=== PATIENT | male | born 1980 | race Caucasian/White ===

== ENCOUNTER 2020-05-17 19:25 | Emergency (ER) | payer BC, SELFPAY ==
--- NOTE | 2020-05-17 19:30 | ED.MALEGU ---
HPI - Male Genitourinary General Chief complaint: Urogenital-Male Stated complaint: uti or std Time Seen by Provider: 05/17/20 19:35 Source: patient and RN notes reviewed Mode of arrival: ambulatory Limitations: no limitations History of Present Illness HPI Narrative: 39 year old male who presents to [facility] care with complaints of penile drainage which is yellow and pain at the tip of his penis for approximately a week duration, Patient states that he thinks he may of been exposed to a STD, has had a new sex partner.Patient denies any fever, chills or sweats, denies any testicular pain, suprapubic pain or any frequency or blood with urination. MD Complaint: penile discharge, possible STD exposure and other (irritation tip of penis) Onset (ago): week(s) (1) Duration: constant Location: penis Radiation: penis Severity scale (1-10): 2 Quality: other (irritation) Relieving factors: none Exacerbating factors: urination Context: new sexual partner Associated symptoms: Reports discharge and other (pain at tip of penis) Related Data Sexually active: Yes Allergies Allergy/AdvReac Type Severity Reaction Status Date / Time house dust Allergy Unknown Sneezing Verified 05/17/20 19:34 Review of Systems Review of Systems: Narrative: CONSTITUTIONAL: Denies fever, chills, or sweats. EYES: Denies visual changes, redness, or discharge. ENT: Denies rhinorrhea, congestion, sore throat, or otalgia. CARDIOVASCULAR: Denies chest pain, palpitations, or edema. RESPIRATORY: Denies cough or dyspnea. GASTROINTESTINAL: Denies abdominal pain, nausea, vomiting, or diarrhea. GENITOURINARY: Denies dysuria or hematuria.positive for irritation at tip of penis with yellow discharge SKIN: Denies rash or itching. MUSCULOSKELETAL: Denies back pain, joint pain, or myalgia. NEUROLOGIC: Denies headache, numbness, or weakness. PSYCHIATRIC: Denies anxiety or depression. All systems reviewed & are unremarkable except as noted in HPI and below PMFSH Past Medical History Medical History (Updated 05/18/20 @ 00:00 by Adwoa Daemon) Asthma Surgical History Surgical History (Updated 05/17/20 @ 19:59 by Delmy De La Cruz NP) [place] teeth extracted Social History Social History Smoking status: Never smoker Alcohol intake: current Gender identity (if verbalized by the patient): Male Comments At time of signature, agree with nursing past medical, surgical, social history. There is no relevant family history pertinent to the presenting complaint Exam Narrative: Exam Narrative: GENERAL: Well-appearing, well-nourished, and in no acute distress. HEAD: Normocephalic, atraumatic. EYES: PERRLA and EOMI. ENT: Nares clear, no rhinorrhea or epistaxis. Mucous membranes moist. NECK: Supple. CHEST: Clear to auscultation. No respiratory distress.SAO2 100% on room air HEART: Regular rate and rhythm. No murmur heard. Normal peripheral pulses. ABDOMEN: Soft, nontender, nondistended, normal active bowel sounds.denies any suprapubic or testicular pain or any CVA tenderness. Stated irritation to end of penis with yellow discharge with voiced concern of possible STD. EXTREMITIES: Normal range of motion. No edema. SKIN: Warm, dry, no rash. NEURO: No focal deficits. Alert and oriented x3. Course Vital Signs Vital signs: Vital Signs Temperature 37.2 C 05/17/20 19:32 Pulse Rate 60 05/17/20 19:32 Respiratory Rate 18 05/17/20 19:32 Blood Pressure 142/80 H 05/17/20 19:32 Pulse Oximetry 100 05/17/20 19:32 Temperature 37.2 C 05/17/20 19:32 Pulse Rate 60 05/17/20 19:32 Respiratory Rate 18 05/17/20 19:32 Blood Pressure 142/80 H 05/17/20 19:32 Pulse Oximetry 100 05/17/20 19:32 MDM - Male Genitourinary MDM Narrative Medical decision making narrative: Patient received Rocephin 250mg IM and Azithromycin 100mg orally while in clinic and prescription for Flagyl 500 mg BID for 7 days sent to [facility]
[2020-05-17 19:32] VITALS: BP 142/80; PULSE 60; RESP 18; TEMP 37.2; O2SAT 100
[2020-05-17] MEDS: AZITHROMYCIN 250 MG TABLET 1000 MG PO (19:48)
[2020-05-17] MEDS: cefTRIAXone 250 MG VIAL IM (19:49)
[2020-05-17] MEDS: LIDOCAINE HCL 1% LOCAL INJ 20 ML VIAL IM (19:49)
== END 2020-05-17 20:09 | disposition home or self-care (01) ==
PROVIDERS: Emergency Provider Registered Nurse; PCP Family Medicine
DX: Z20.2 Contact with and (suspected) exposure to infections with a predominantly sexual mode of transmission (principal); N34.2 Other urethritis; J45.909 Unspecified asthma, uncomplicated
CPT/HCPCS: 81003; 87491; 87591; 87661; 96372; 99213; A9270; G0463; J0696

== ENCOUNTER 2024-01-29 13:40 | Emergency (ER) | payer OTHER, SELFPAY ==
--- NOTE | ~2024-01-29 | XR_ITS ---
EXAMINATION: XR ribs LT 2V DATE: 01/29/2024 14:03 INDICATION: Left rib pain. TECHNIQUE: 2 views of the left ribs on 3 radiographs were obtained. COMPARISON: None. FINDINGS: There is no left-sided pneumonia, pleural effusion, or pneumothorax. The heart size is norm al. IMPRESSION: 1. No fracture. Reviewed, dictated and finalized at location A. IMPRESSION: 1. No fracture.
--- NOTE | 2024-01-29 13:48 | ED.GENADULT ---
HPI - General Adult General Chief complaint: Wound/Laceration Stated complaint: pain in the lt chest region Time Seen by Provider: 01/29/24 13:50 Source: patient Mode of arrival: ambulatory Limitations: no limitations History of Present Illness HPI narrative: Ez is a 43-year-old male patient presenting to the clinic today with complaints of left-sided rib pain times 10 days. He reports he was leaning over when building a bar and felt a pop in the left chest wall. States that is just below his cruz on the left side. Having pain with sneezing, coughing, any taking deep breaths over this area. No bruising or swelling noted. Denies any worsening of shortness of breath. History of asthma. Related Data Home Medications Medication Instructions Recorded Confirmed No Home Medications 11/18/21 01/29/24 Allergies Allergy/AdvReac Type Severity Reaction Status Date / Time house dust Allergy Unknown Sneezing Verified 01/29/24 13:51 Review of Systems Review of Systems: Pertinent positives per HPI. Patient denies any fever, chills, rash, headache, visual changes, dizziness, cough, runny nose, sore throat, shortness of breath, chest pain, palpitations, nausea, vomiting, diarrhea, constipation, abdominal pain, or any urinary issues. PMFSH Past Medical History Medical History Asthma Surgical History Surgical History [place] teeth extracted Social History Social History Smoking status: Former smoker Alcohol intake: current Gender identity (if verbalized by the patient): Male Comments At the time of my signature, I reviewed and agree with the nursing past medical, surgical, social, and family history. There is no relevant family history pertinent to the patient complaint. Exam Narrative: General: Well-developed, well nourished, in no apparent distress Head: Normocephalic, atraumatic. Chest wall: Even rise and fall of the chest wall with respirations, no bruising or swelling noted, tenderness to palpation over the left cruz/anterior rib prominence Cardio: Regular rate and rhythm, s1 and s2 normal, no murmur appreciated. Resp: Clear to auscultation bilaterally, no rhonchi, rales, wheezing or rubs. Extremities: No deformity, no edema, no cyanosis, capillary refill less than 2 seconds, peripheral pulses palpable and strong. Integumentary: [place], warm, and dry, intact without lesion, no rashes. Course Course Emergency Course: Portions of this record may have been created with voice recognition software. Level of Care: Express Care Visit Vital Signs Vital signs: Vital signs reviewed Medical Decision Making MDM Narrative Medical decision making narrative: At the time of visit patient is resting comfortably on the exam table. Patient appears to be nontoxic. Diagnostics: Left rib x-ray was performed and was negative for any sign of fracture, malalignment, pneumonia, or pneumothorax. Plan: I suspect patient has rib pain/chest wall pain. Supportive measures were discussed with the patient and they voiced understanding discharge instructions and agrees to treatment plan. Return precautions reviewed Differential Diagnosis Differential Diagnosis: Rib fracture, rib contusion, costochondritis, chest wall pain, pneumothorax Imaging Data Radiologist's impression: ITS Impressions Ribs X-Ray 01/29/24 14:07 IMPRESSION: 1. No fracture. Discharge Plan Discharge Clinical Impression: Rib pain on left side Patient Disposition: Home, Self-Care Condition: Stable Instructions: Antibiotic Form, Chest Wall Pain (ED) Additional Instructions: X-rays negative for any sign of acute fracture or malalignment of the left ribs. No sign of pneumonia or pneumothorax. May take Tylenol/ibuprofen as needed for mike
[2024-01-29 13:51] VITALS: BP 136/77; PULSE 61; RESP 18; TEMP 36.9; O2SAT 98
== END 2024-01-29 14:18 | disposition home or self-care (01) ==
PROVIDERS: Emergency Provider Nurse Practitioner Family; Referring Provider Family Medicine
DX: R07.81 Pleurodynia (principal); J45.909 Unspecified asthma, uncomplicated; Z87.891 Personal history of nicotine dependence
CPT/HCPCS: 71100; 99213; G0463

== ENCOUNTER 2024-03-14 10:49 | Emergency (ER) | payer OTHER, SELFPAY ==
[2024-03-14 10:57] VITALS: BP 133/66; PULSE 73; RESP 18; TEMP 36.9; O2SAT 99
--- NOTE | 2024-03-14 11:08 | ED.GENADULT ---
HPI - General Adult General Chief complaint: Skin/Abscess/Foreign Body Stated complaint: Right Knee Injury Time Seen by Provider: 03/14/24 11:18 Source: patient, RN notes reviewed and old records reviewed Mode of arrival: ambulatory Limitations: no limitations History of Present Illness HPI narrative: patient presents to [facility] with complaints of right knee pain and swelling. He reports that 10-14 days ago he cut his knee on his boat. He reports that he did not think much of it, until 1:00 a.m. this morning he wakened and the knee was swollen, red, hot to the touch. He took ibuprofen and is feeling better. The knee does continue with swelling and redness and warmth. He does retain full range of motion. He voices no other concerns or complaints today. He denies any other injury or trauma Related Data Home Medications Medication Instructions Recorded Confirmed No Home Medications 11/18/21 03/14/24 Allergies Allergy/AdvReac Type Severity Reaction Status Date / Time house dust Allergy Unknown Sneezing Verified 03/14/24 11:01 Review of Systems Review of Systems: All systems reviewed & are unremarkable except as noted in HPI and below Constitutional: Constitutional: Reports no additional constitutional complaints ENT: Reports system reviewed and no additional complaints, except as documented Cardiovascular: Cardiovascular: Reports no additional cardiovascular complaints Respiratory: Respiratory: Reports no additional respiratory complaints Gastrointestinal: Gastrointestinal: Reports no additional gastrointestinal complaints Musculoskeletal: Musculoskeletal: Reports arthralgias ( right knee swollen, warm, red) [facility] Past Medical History Medical History Asthma Surgical History Surgical History [place] teeth extracted Social History Social History Smoking status: Former smoker Alcohol intake: current Gender identity (if verbalized by the patient): Male Comments At the time of my signature, I reviewed and agree with the nursing past medical, surgical, social, and family history. There is no relevant family history pertinent to the patient complaint. Exam Const: General: cooperative, no acute distress, alert and awake Orientation/consciousness: oriented to person, oriented to place and oriented to time HENMT: Head: normal to inspection Resp: Effort & Inspection: normal respiratory effort and able to speak in complete sentences Auscultation: clear to auscultation bilaterally, no crackles, no rales, no rhonchi and no wheezes Cardio: Palpation: normal PMI Rate: regular rate Rhythm: regular rhythm Heart sounds: S1 normal heart sound present and S2 normal heart sound present Neuro: General: oriented to person, oriented to place and oriented to time Cranial nerves: Yes CN's II-XII intact bilaterally Extrem: Upper/lower leg/hip images: 1. shallow abrasion 2. knee is erythematous, warm to the touch, fluctuant Psych: Appearance: grossly normal Thought process: Normal thought process present Insight: Good insight present (Psych) Judgement: Good judgement present (Psych) Course Course Level of Care: Express Care Visit Vital Signs Vital signs: Vital Signs Temperature 98.4 F 03/14/24 10:57 Pulse Rate 73 03/14/24 10:57 Respiratory Rate 18 03/14/24 10:57 Blood Pressure 133/66 03/14/24 10:57 Pulse Oximetry 99 03/14/24 10:57 Oxygen Delivery Room Air 03/14/24 10:57 Temperature 98.4 F 03/14/24 10:57 Pulse Rate 73 03/14/24 10:57 Respiratory Rate 18 03/14/24 10:57 Blood Pressure 133/66 03/14/24 10:57 Pulse Oximetry 99 03/14/24 10:57 Oxygen Delivery Room Air 03/14/24 10:57 Reviewed Transfer Transfered to: [facility] Transfer rationale: concern for septic joint Accepting p
== END 2024-03-14 11:30 | disposition short-term general hospital (02) ==
PROVIDERS: Emergency Provider Nurse Practitioner Family
DX: M00.9 Pyogenic arthritis, unspecified (principal); Z87.891 Personal history of nicotine dependence; J45.909 Unspecified asthma, uncomplicated
CPT/HCPCS: 99212; G0463

== ENCOUNTER 2024-03-14 11:43 | Emergency (ER) | payer OTHER, SELFPAY ==
--- NOTE | ~2024-03-14 | XR_ITS ---
XR knee RT min 4V 03/14/2024 14:25 Indication: Right knee pain. Anterior laceration. Procedure: 5 views right knee Comparison: No prior studies for comparison. Findings: Large amount of prepatellar and infrapatellar soft tissue swelling. No joint effusion. No a cute fracture or traumatic malalignment. No foreign bodies. Impression: 1: Large amount of prepatellar and infrapatellar soft tissue swelling. Reviewed, dictated and finalized at location B. Impression: 1: Large amount of prepatellar and infrapatellar soft tissue swelling.
[2024-03-14 11:57] VITALS: BP 133/75; PULSE 70; RESP 18; TEMP 36.9; O2SAT 100
[2024-03-14 12:46] VITALS: BP 143/65; PULSE 70; RESP 18; TEMP 36.9; O2SAT 100
--- NOTE | 2024-03-14 14:02 | ED.LOWEXIN ---
HPI - Extremity Injury (Lower) General Chief Complaint: Extremity Injury, Lower Stated Complaint: right knee pain Time Seen by Provider: 03/14/24 14:00 Source: patient Mode of arrival: ambulatory Limitations: no limitations History of Present Illness HPI Narrative: Patient presents with right knee pain. He scratched his knee approximately 1 week ago. It started swelling and is warm to the touch. He describes pain and pressure. He picked one of the scabs thinking it might relieve some of the pressure and got some blood out. Took 4 ibuprofen. No fevers. He also has a rash on his abdomen which had been itchy but that improved. Denies any penile pain or discharge. No history of knee injury/orthopedic intervention. Related Data Allergies Allergy/AdvReac Type Severity Reaction Status Date / Time house dust Allergy Unknown Sneezing Verified 03/15/24 11:06 [facility] Past Medical History Medical History (Updated 03/15/24 @ 12:20 by Nelson Clay MD) Asthma Septic prepatellar bursitis of right knee Surgical History Surgical History [place] teeth extracted Family History Family History Unknown Asthma Social History Social History Social History: caffeine use Smoking status: Former smoker Alcohol intake: current Drinks per week: 10 Substance use: current Substance use type: marijuana Occupation/Education: occupation Additional occupation/education comments: self- construction Gender identity (if verbalized by the patient): Male Exam Narrative: GENERAL: Well-appearing, well-nourished, and in no acute distress. HEAD: Normocephalic, atraumatic. EYES: Non injected, non icteric ENT: Nares clear, no rhinorrhea or epistaxis. NECK: Supple. CHEST: Speaking in full sentences. No respiratory distress. HEART: Regular rate and rhythm. . ABDOMEN: Soft, nondistended. EXTREMITIES: Knee effusion. Edema. Knee Warm to the touch. Pain with active range of motion though improved on passive ROM. SKIN: Warm, dry. 2 scabbed areas. Faint Maculopapular rash overlying abdomen which is also on top of mildly sunburnt/sun damaged skin thoughout. NEURO: No focal deficits. Alert and oriented x3. PSYCH: Normal mood and affect. Course Vital Signs Vital signs: Vital Signs Temperature 98.5 F 03/14/24 11:57 Pulse Rate 70 03/14/24 11:57 Respiratory Rate 18 03/14/24 11:57 Blood Pressure 133/75 03/14/24 11:57 Pulse Oximetry 100 03/14/24 11:57 Oxygen Delivery Room Air 03/14/24 11:57 Temperature 98.8 F 03/14/24 19:52 Pulse Rate 57 L 03/14/24 19:52 Respiratory Rate 17 03/14/24 19:52 Blood Pressure 122/78 03/14/24 19:52 Pulse Oximetry 100 03/14/24 19:52 Oxygen Delivery Room Air 03/14/24 11:57 Procedures Joint Aspiration/Injection Joint Asp./Inject. 1: Joint Aspiration Date: 03/14/24 Time Out Performed: Yes Side of body: right Joint Aspirated: knee Ultrasound Guidance: Yes Skin Prep: other (Alcohol) Local Anesthetic: lidocaine 1% Amount of anesthesia used (mL): 6 Needle Size Used: 18G Fluid Obtained: bloody Total fluid obtained (mL): 12 Patient Tolerated Procedure: well and no complications Additional Comments: Bedside ultrasound showed moderate knee effusion. Procedure Note - Arthrocentesis Consent was provided by the patient to perform diagnostic and therapeutic right knee arthrocentesis under ultrasound guidance. The procedure was performed by me. The patient was monitored during the entire procedure. The knee was prepped and draped. Area prepped with alcohol and skin locally anesthetized as above. US was used to guide the aspiration needle along lateral aspect of right knee and bloody/straw colored fluid was removed. Fluid was sent to lab f
[2024-03-14 14:52] LABS: Basophils Percent Auto 0.4 % (0.2-1.2); Eosinophils Percent Auto 0.4 % (0-4.4); Hematocrit 43.2 % (42.0-52.0); Hemoglobin 14.9 g/dL (14.0-18.0); Immature Granulocyte Absolute 0.02 K/mm3 (0.00-0.031); Immature Granulocyte Percent A 0.2 % (0-0.5); Lymphocytes Absolute Auto 1.05 K/mm3 (0.9-3.2); Lymphocytes Percent Auto 10.5 % (18.3-44.2); Mean Corpuscular HGB Conc 34.5 g/dl (32-36); Mean Corpuscular Hemoglobin 33.1 pg (26-34); Mean Platelet Volume 9.6 fl (7.4-10.4); Neutrophils Absolute Auto 7.9 K/mm3 (1.3-6.7); Neutrophils Percent Auto 78.5 % (45.5-73.1); Platelet Count Result 205 k/mm3 (150-375); Red Cell Distribution Width 13.3 % (11.5-14.5)
[2024-03-14 15:01] LABS: Anion Gap 10 mmol/L (4-12); Blood Urea Nitrogen 13 mg/dL (9-20); Calcium 9.1 mg/dL (8.4-10.2); Carbon Dioxide 29 mmol/L (22-30); Chloride 96 mmol/L (98-107); Estimated CRCL calculation 111 ml/min; Estimated Glomerular Filt Rate > 60; Glucose 99 mg/dL (65-110); Lactic Acid Reflex 0.9 mmol/L (0.7-2.0); Sodium 135 mmol/L (137-145)
[2024-03-14 15:02] LABS: INR 0.9; Prothrombin Time 12.9 Seconds (11.1-14.7)
[2024-03-14 15:03] LABS: Partial Thromboplastin Time 27.3 Seconds (22.3-36.8)
[2024-03-14 15:05] LABS: D Dimer 0.31 ug/mL (<0.48)
[2024-03-14 15:53] LABS: CRP 2.3 mg/dL (<1.0)
[2024-03-14 16:13] LABS: Appearance Synovial Fluid Bloody (Clear); Color Synovial Fluid Red (Colorless); Neutrophils Synovial Fluid 82 % (0-25); Nucleated Cell Synovial Fluid 21369 /uL (0-200); RBC Synovial Fluid 111000 /uL (0-0); Source Synovial Fluid Synovial fluid
[2024-03-14 16:14] LABS: Lymphocytes Synovial Fluid 8 %; Monocytes Synovial Fluid 10 %
[2024-03-14 16:18] LABS: Crystals Synovial Fluid None Seen (None Seen)
[2024-03-14 16:24] LABS: Erythrocyte Sedimentation Rate 1 mm/hr (0-20)
[2024-03-14 16:30] VITALS: PULSE 72; RESP 18; TEMP 36.7; O2SAT 100
[2024-03-14] MEDS: cefTRIAXone 2 GM/NS 100 ML 2 GM/100 ML BAG IVPB (17:03)
[2024-03-14] MEDS: VANCOMYCIN 1,750 MG/NS 500 ML 1,750 MG/500 ML BAG 250 MG IVPB (17:32)
[2024-03-14 17:47] VITALS: BP 118/77; PULSE 58; RESP 18; TEMP 36.8; O2SAT 100
[2024-03-14 19:52] VITALS: BP 122/78; PULSE 57; RESP 17; TEMP 37.1; O2SAT 100
[2024-03-20 19:29] LABS: Total Protein Synovial Fluid 3.7 g/dL (1.0-3.0)
[2024-04-01 14:35] LABS: Glucose Synovial Fluid 80 mg/dL
== END 2024-03-14 19:58 | disposition home or self-care (01) ==
PROVIDERS: Emergency Provider Student in an Organized Health Care Education/Training Program
DX: M25.561 Pain in right knee (principal); M25.461 Effusion, right knee; J45.909 Unspecified asthma, uncomplicated; Z87.891 Personal history of nicotine dependence
CPT/HCPCS: 20610; 36415; 73564; 80048; 82945; 83605; 84157; 85025; 85380; 85610; 85652; 85730; 86140; 87040; 87070; 87075; 87077; 87181; 87205; 89051; 89060; 96365; 96366; 96367; 99284; J0696; J3370

== ENCOUNTER 2024-10-16 14:13 | Emergency (ER) | payer OTHER, SELFPAY ==
--- OUTSIDE RECORDS SUMMARY | 2024-10-16 14:15 | XMS_ITS | Clinical Summary ---
Author Organization [facility] Address [address] [place] [address] Care Team Providers Care Damage Prevention Coordinator Name Role Phone Gloria Turner MD Primary Care Provider [phone] Source Comments [facility],non-owned Affiliates and Associated Physician Practices is amultiple site organization consisting of ambulatory clinics and hospital sitesin [place], [place], [place] and [place]. This disclosure is being madepursuant to the Care Everywhere program and may not contain all information available regarding this patient. Last updated 18.[facility] Allergies No known active allergies Medications Be aware that medications may not be up to date on this document. Always verify current medications with the patient. No known medications Social History Tobacco Use Types Packs/Day Years Used Date Smoking Tobacco: Never Smokeless Tobacco: Never Sex and Gender Information Value Date Recorded Sex Assigned at Not on file Gender Identity Not on file Sexual Orientation Not on file Last Filed Vital Signs Vital Sign Reading Time Taken Comments Blood Pressure 118/68 01/16/2019 9:43 AM CDT Pulse 73 01/16/2019 9:43 AM CDT Temperature 37.2 C (98.9 F) 01/16/2019 9:43 AM CDT Respiratory Rate 16 01/16/2019 9:43 AM CDT Oxygen Saturation 97% 01/16/2019 9:43 AM CDT Inhaled Oxygen Concentration - - Weight 68 kg (150 lb) 01/16/2019 9:43 AM CDT Height 177.8 cm (5' 10 ) 01/16/2019 9:43 AM CDT Body Mass Index 21.52 01/16/2019 9:43 AM CDT Plan of Treatment Health Maintenance Due Date Last Done Comments COLOGUARD (AGES 45-75) - COL ON CA SCREENING 1978 COLON MONITORING 1978 COLONOSCOPY - COLON CA SCREENING 1978 CT COLONOGRAPHY - COLON CA SCREENING 1978 Colorectal Cancer Screening 1978 FIT - COLON CA SCREENING 1978 FLEX SIG - COLON CA SCREENING 1978 LIPID TESTING 1978 HIV SCREENING 1993 HEPATITIS C SCREENING 07/19/1996 DTAP/TDAP/TD VACCINES (1 - Tdap) 1997 HEPATITIS B VACCINE (1 of 3 - 19+ 3-dose series) 1997 COVID-19 VACCINE (1 - 2023-2 5 season) 2024 INFLUENZA VACCINE (#1) 2024 DEPRESSION SCREENING 08/28/2024 ZOSTER VACCINE (1 of 2) 2028 HIB VACCINE Aged Out No longer eligi ble based on patient's age to complete this topic HPV VACCINE Aged Out No longer eligi ble based on patient's age to complete this topic MENINGOCOCCAL (Group B) VACCINE Aged Out No longer eligible based on patient's age to complete this topic MENINGOCOCCAL VACCINE Aged Out No nathen juan eligible based on patient's age to complete this topic PNEUMOCOCCAL VACCINE Aged Out No long er eligible based on patient's age to complete this topic Care Teams Damage Prevention Coordinator Relationship Specialty Start Date End Date Gloria Turner MD [address] [place] [id number] PCP - General Family Medicine 01/16/19
--- OUTSIDE RECORDS SUMMARY | 2024-10-16 14:15 | XMS_ITS | Clinical Summary ---
Author Organization [facility] Address [address] [place] [address] Care Team Providers Care Return Clerk Name Role Phone Gloria Turner MD Primary Care Provider [phone] Allergies No known active allergies Medications HYDROcodone-acet aminophen (NORCO) 5-325 mg per tabletIndication s:Pain Take 1 tablet by mouth every 6 (six) hours as needed for pain 12 tablet 05/21/2022 Active Active Problems No known active problems Medical History Medical History Date Comments Asthma Social History Tobacco Use Types Packs/Day Years Used Date Smoking Tobacco: Never Tobacco Cessation:Counseling Given: Not Answered Alcohol Use Standard Drinks/Week Comments Yes 0 (1 standard drink = 0.6 oz pur e alcohol) Personal Safety Answer Date Recorded Getting School Help Needed Not on file 08/30 Sex and Gender Information Value Date Recorded Sex Assigned at Not on file Legal Sex Male 3:38 PM CDT Gender Identity Not on file Sexual Orientation Not on file Obstetrics History Last Filed Vital Signs Vital Sign Reading Time Taken Comments Blood Pressure 123/80 05/21/2022 4:15 PM CDT Pulse 83 05/21/2022 4:15 PM CDT Temperature 36.6 C (97.8 F) 05/21/2022 3:42 PM CDT Respiratory Rate 18 05/21/2022 3:42 PM CDT Oxygen Saturation 99% 05/21/2022 4:15 PM CDT Inhaled Oxygen Concentration - - Weight 68 kg (150 lb) 05/30/2022 10:00 AM CDT Height 177.8 cm (5' 10 ) 05/30/2022 10:00 AM CDT Body Mass Index 21.52 05/30/2022 10:00 AM CDT Plan of Treatment Health Maintenance Due Date Last Done Comments Colon Cancer Screening-Colonoscopy 1978 Depression Screening 1978 Hepatitis C Screening 1978 DTaP/Tdap/Td Vaccine (1 - Tdap) 1989 Hepatitis B Screening 1996 Regular Well Visit/Exam 18-64 1996 Covid-19 Vaccine (3 - 2023-2 5 season) 2024 11/16/2021, 01/11/2021 Influenza Vaccine (#1) 2024 HPV Vaccines Aged Out No longer eligi ble based on patient's age to complete this topic Pneumococcal vaccine <65 Aged Out No longer eligible based on patient's age to complete this topic Insurance [employer] [place] [employer] [place] Care Teams Return Clerk Relationship Specialty Start Date End Date Gloria Turner MD [address] [place] [address] PCP - General Family Medicine 05/21/22
--- OUTSIDE RECORDS SUMMARY | 2024-10-16 14:15 | XMS_ITS | Referral Summary ---
Author Organization [facility] Address [address] [place] [address] Care Team Providers Care Account Administrator Name Role Phone Gloria Turner MD Primary Care Provider [phone] Allergies No known active allergies Medications HYDROcodone-acet aminophen (NORCO) 5-325 mg per tabletIndication s:Pain Take 1 tablet by mouth every 6 (six) hours as needed for pain 12 tablet 05/21/2022 Active Active Problems No known active problems Social History Tobacco Use Types Packs/Day Years [...] 05/30/2022 10:00 AM CDT Plan of Treatment Not on file Insurance [place] [employer] [place] [employer] [place] [place] Care Teams Account Administrator Relationship Specialty Start Date End Date Gloria Turner MD [address] [place] [address] PCP - General Family Medicine 05/21/22
--- OUTSIDE RECORDS SUMMARY | 2024-10-16 14:15 | XMS_ITS | Referral Summary ---
Author Organization [facility] Address [address] [place] [address] Care Team Providers Care Mechanical Equipment Test Engineer Name Role Phone Gloria Turner MD Primary Care Provider [phone] Source Comments [facility],non-owned Affiliates and Associated Physician Practices is amultiple site organization consisting of ambulatory clinics and hospital sitesin [place], [place], [place] and [place]. This disclosure is being madepursuant to the Care Everywhere program and may not contain all information available regarding this patient. Last updated 18.[facility] Allergies No known active allergies Medications Be [...] 01/16/2019 9:43 AM CDT Plan of Treatment Not on file Care Teams Mechanical Equipment Test Engineer Relationship Specialty Start Date End Date Gloria Turner MD [address] [place] [address] PCP - General Family Medicine 01/16/19
--- OUTSIDE RECORDS SUMMARY | 2024-10-16 14:15 | XMS_ITS | Patient Health Summary ---
Author Organization [facility] [place] Address [address] [place] [address] Care Team Providers Care Webfed Offset Press Operator Name Role Phone Gloria Turner MD Primary Care Provider [phone] Note from [facility] [place]note 2],non-owned Affiliates and Associated Physician Practices is amultiple site organization consisting of ambulatory clinics and hospital sitesin [place], [place], [place] and [place]. This disclosure is being madepursuant to the Care Everywhere program and may not contain all information available regarding this patient. Last updated 18.[facility] [facility] [place] Allergies No known active allergies Medications Be [...] Mass Index 21.52 01/16/2019 9:43 AM CDT Procedures * STREP A SCREEN - POINT OF CARE (AMB) STL(Performed 01/16/2019) Performed for Tonsillitis Results * STREP A SCREEN (01/16/2019 9:54 AM CDT) Strep A Rapid POCT Negative Negative Strep A Internal Control Present Lot # [id number] Expiration Date 06 27 2020 Throat ENTIRE THROAT (SURFACE REGION OF NECK) / Unknown 01/16/2019 9:54 AM CDT Alfred Layton [facility] - POINT OF CA RE ORDERABLES Care Teams Webfed Offset Press Operator Relationship Specialty Start Date End Date Gloria Turner MD [address] [place] [id number] PCP - General Family Medicine 01/16/19
--- OUTSIDE RECORDS SUMMARY | 2024-10-16 14:15 | XMS_ITS | Continuity of Care Document ---
Author Name Deisy Loco Address [address] [place], [place] [id number] [place] [address] Organization Unknown Address [address] [place] [address] Medications No known medications Problems No known problems
--- OUTSIDE RECORDS SUMMARY | 2024-10-16 14:15 | XMS_ITS | Continuity of Care Document ---
Author Name Deisy Loco Address [address] [place] [address] Organization Unknown Address [address] [place] [address] Medications No known medications Problems No known problems
[2024-10-16 14:17] VITALS: BP 149/82; PULSE 79; RESP 16; TEMP 37.3; O2SAT 98
--- NOTE | 2024-10-16 14:24 | ED_ITS ---
HPI - Wound/Laceration General Chief Complaint: Wound/Laceration Stated Complaint: right hand finger lac Time Seen by Provider: 10/16/24 14:28 Source: patient and RN notes reviewed Mode of arrival: ambulatory Limitations: no limitations History of Present Illness HPI narrative: 44-year-old male presents with concern for laceration to the 2nd digit of his right hand. Reports just prior to arrival he cut the finger with a razor blade. He denies any decreased strength, sensation, range of motion. Related Data Allergies Allergy/AdvReac Type Severity Reaction Status Date / Time house dust Allergy Unknown Sneezing Verified 10/16/24 14:28 Review of Systems Review of Systems: CONSTITUTIONAL: Denies malaise, chills, sweats, or fever. SKIN: Reports laceration the 2nd digit of the right hand MUSCULOSKELETAL: Denies muscle skeletal pain NEUROLOGIC: Denies numbness, weakness All systems reviewed & are unremarkable except as noted in HPI and below PMFSH Past Medical History Medical History Asthma Asthma Folliculitis Leukopenia Prepatellar bursitis, right knee Right knee pain Rotator cuff strain Septic prepatellar bursitis of right knee Skin lesion of back Tendonitis of shoulder, left Surgical History Surgical History [place] teeth extracted Family History Family History Unknown Asthma Social History Social History Social History: caffeine use Smoking status: Former smoker Alcohol intake: current Drinks per week: 10 Substance use: current Substance use type: marijuana Occupation/Education: occupation Additional occupation/education comments: self- construction Gender identity (if verbalized by the patient): Male Comments At time of signature, agree with nursing past medical, surgical, social and family history. There is no relevant family history pertinent to the presenting complaint Exam Narrative: GENERAL: Well-appearing, well-nourished, and in no acute distress. HEAD: Normocephalic EYES: PERRLA, conjunctivae clear NECK: Supple. CHEST: Speaks in full sentences. No respiratory distress. HEART: Regular rate and rhythm. Normal and equal peripheral pulses. EXTREMITIES: Right hand and digits of hand have normal strength and sensation. 5/5 strength with digit flexion, extension. Range of motion normal. No clubbing, cyanosis, or edema noted. Normal digital cascade with flexion of fingers, median, ulnar and radial nerve intact. Normal sensation of each side of finger. Good capillary refill and radial pulse. Distal capillary refill less than 3 seconds. SKIN: Warn, dry, intact, pink. No rash NEURO: Alert and oriented x3. PSYCH: Normal mood and affect Course Course Emergency Course: Patient is aware of diagnosis, understands and agrees to treatment plan. Anticipatory guidance given. Patient agrees to follow-up as directed and is aware of reasons to seek care at the emergency department. Portions of this record may have been created with voice recognition software Level of Care: Express Care Visit Vital Signs Vital signs: Vital Signs Temperature 99.2 F 10/16/24 14:17 Pulse Rate 79 10/16/24 14:17 Respiratory Rate 16 10/16/24 14:17 Blood Pressure 149/82 H 10/16/24 14:17 Pulse Oximetry 98 10/16/24 14:17 Oxygen Delivery Room Air 10/16/24 14:17 Temperature 99.2 F 10/16/24 14:17 Pulse Rate 79 10/16/24 14:17 Respiratory Rate 16 10/16/24 14:17 Blood Pressure 149/82 H 10/16/24 14:17 Pulse Oximetry 98 10/16/24 14:17 Oxygen Delivery Room Air 10/16/24 14:17 Reviewed. Procedures Laceration Laceration 1: Date: 10/16/24 Time: 14:35 Side (If applicable): right Size (cm): 1.5 Description: linear Depth: simple, single layer Pre-repair: wound explored and irrigated ====== Skin Level ====== Skin layer closed with: dermabond ====== Subcutaneous Layer ====== ====== Muscle Layer ====== ====== Tendon Layer ====== MDM - Wound/Laceration MDM Narrative Medical decision making narrative: Wound explored for foreign body and copious irrigation provided with no evidence of FB. Discussed the potential of retained foreign body with the patient and signs/symptoms that should prompt the patient to immediately go to the ED for reevaluation. The wound was explored and no foreign bodies were found. There was no evidence of tendon or nerve lacerations. Anticipatory guidance was provided. Tetanus prophylaxis was given Differential Diagnosis Differential diagnosis: Likely laceration, abrasion and avulsion of skin Critical Care Time Critical Care Time Critical Care Time: No Discharge Plan Discharge Clinical Impression: Laceration Patient Disposition: Home, Self-Care Condition: Stable Instructions: Laceration (ED) Additional Instructions: Skin adhesive care: -adhesive works like a bandage; do not use antibiotic ointment as it can break down the adhesive -You can shower while the adhesive is on your skin, but do not take a bath or soak or scrub the area for 7-10 days. Dry your skin by patting it gently with a towel. -The adhesive will peel off on its own; usually by 5-10days. If after 10 days, you still have adhesive on you, you can use antibiotic ointment or petroleum jelly to get it off. After you heal, you should protect the scar from the sun. Use sunscreen on the area or wear clothes or a hat that covers the scar. Follow up with your PCP as needed If you have any worsening of symptoms, redness, swelling, fever, or drainage, or any other concerns please follow up with your PCP or go to the ED immediately. Patient Language: Kuwaiti Prescriptions: No Action diphenhydramine HCl 25 mg capsule 25 mg PO HS PRN (Reason: itching) Qty: 14 0RF acetaminophen 500 mg capsule 1,000 mg PO Q6H PRN (Reason: pain) Qty: 20 0RF Follow-up/Referrals: PHYSICIAN,COURTESY BUS DRIVER [Primary Care Provider] - Time of Disposition: 14:37
[2024-10-16] MEDS: TETANUS,DIPHTHERIA,AC PERTUSSIS ADULT (0.5 ML) BOOSTRIX IM (14:38)
== END 2024-10-16 14:59 | disposition home or self-care (01) ==
PROVIDERS: Emergency Provider Nurse Practitioner
DX: S61.210A Laceration without foreign body of right index finger without damage to nail, initial encounter (principal); W26.8XXA Contact with other sharp object(s), not elsewhere classified, initial encounter; Z23 Encounter for immunization; Z87.891 Personal history of nicotine dependence; F12.90 Cannabis use, unspecified, uncomplicated; J45.909 Unspecified asthma, uncomplicated
CPT/HCPCS: 12001; 90471; 90715; 99212; G0463

== ENCOUNTER 2025-08-04 15:39 | Emergency (ER) | payer OTHER, SELFPAY ==
[2025-08-04 15:55] VITALS: BP 139/90; PULSE 80; RESP 20; TEMP 37.3; O2SAT 96
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
== END 2025-08-04 16:20 | disposition short-term general hospital (02) ==
DX: R07.89 Other chest pain (principal); M54.2 Cervicalgia; S00.81XA Abrasion of other part of head, initial encounter; V86.02XA Driver of snowmobile injured in traffic accident, initial encounter; J45.909 Unspecified asthma, uncomplicated; Z87.891 Personal history of nicotine dependence
CPT/HCPCS: 99212; G0463